=== PATIENT | male | born 1985 | race African-American/Black ===

== ENCOUNTER 2022-01-23 08:14 | Emergency (ER) | payer BC ==
[~2022-01-23] VITALS: Ht 177.8 cm; Wt 80.0 kg
[2022-01-23 08:20] VITALS: PULSE 91; TEMP 98.1
[2022-01-23] MEDS ORDERED: ELIQUIS 5MG PO (08:20)
[2022-01-23] MEDS ORDERED: CRUTCHES MC (09:09)
[2022-01-23] MEDS ORDERED: CEPHALEXIN500 M1 PO (09:10)
[2022-01-23] MEDS ORDERED: NORCO 325 MG-51 TAB PO (09:10)
[2022-01-23 09:20] VITALS: BP 132/97
== END 2022-01-23 09:20 | disposition home or self-care (01) ==
LOC: COL.ER 08:14
DX: M79.674 Pain in right toe(s) (principal); F17.210 Nicotine dependence, cigarettes, uncomplicated; Z28.310 Unvaccinated for COVID-19